=== PATIENT | male | born 1990 | race Two or more races ===

== ENCOUNTER 2016-12-08 00:09 | Emergency (ER) | payer OTHER ==
[~2016-12-08] VITALS: Ht 170.2 cm; Wt 97.5 kg
[2016-12-08] MEDS ORDERED: NKM (00:23)
[2016-12-08 00:55] VITALS: BP 119/95
[2016-12-08 01:32] LABS: ALANINE AMINOTRANSFERASE 16 U/L (3-41); ANION GAP 16 (5-15); ASPARTATE AMINO TRANSFERASE 15 U/L (5-40); CALCIUM 8.4 mg/dL (8.6-10.2); CARBON DIOXIDE 24 mEQ/L (20-30); CHLORIDE 100 mEQ/L (98-107); CREATININE 0.9 mg/dL (0.7-1.2); GLOMERULAR FILTRATION RATE > 60 mL/min (>60); HEMOLYSIS 2; POTASSIUM 3.9 mEQ/L (3.4-4.9); SODIUM 140 mEQ/L (135-145); TOTAL PROTEIN 7.1 g/dL (6.6-8.7)
[2016-12-08] MEDS ORDERED: Lidocaine 2% 20mg/ml/Epi 0.005mg/ml 20ml vial ONE (02:27)
[2016-12-08] MEDS ORDERED: Lidocaine 1% 10mg/ml/EPI 0.01mg/ml 50ml INJ ONE (02:30)
[2016-12-08 02:55] VITALS: BP 118/89
[2016-12-08] MEDS ORDERED: BACITRACIN1 EACH TOPIC (03:02)
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
[2016-12-08 03:30] VITALS: BP 118/89
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
== END 2016-12-08 03:30 | disposition home or self-care (01) ==
LOC: EDBD 00:09 → EMR 00:36
DX: S91.001A Unspecified open wound, right ankle, initial encounter (principal); W34.00XA Accidental discharge from unspecified firearms or gun, initial encounter; Y92.89 Other specified places as the place of occurrence of the external cause; M79.5 Residual foreign body in soft tissue
CPT/HCPCS: 36415; 80053; 99283